=== PATIENT | female | born 1955 | race Caucasian/White ===

== ENCOUNTER → 2016-11-10 | Outpatient (CLI) | payer BC ==
[~2016-11-10] MED LIST: OMNIPAQUE 350 MG/ML, 100ML BOTTLE ONE
== END | disposition home or self-care (01) ==
LOC: CFH 08:18
PROVIDERS: ATTEND Internal Medicine Gastroenterology
DX: K62.9 Disease of anus and rectum, unspecified (principal); I31.3 Pericardial effusion (noninflammatory); R18.8 Other ascites
CPT/HCPCS: 74177; Q9967

== ENCOUNTER → 2016-12-30 | Outpatient (CLI) | payer BC ==
[~2016-12-30] MED LIST changes: +ESOM20CA PO; +LACT1CAP35 PO; +MULTIVITAMIN PO; -OMNIPAQUE 350 MG/ML, 100ML BOTTLE ONE; +ONDA4TAB7 PO; +OXYC-223 PO; +POLY17PO5 PO
== END | disposition home or self-care (01) ==
LOC: WOUND 13:47
PROVIDERS: ATTEND Internal Medicine
DX: T81.89XD Other complications of procedures, not elsewhere classified, subsequent encounter (principal); I10 Essential (primary) hypertension; Z85.43 Personal history of malignant neoplasm of ovary; Z90.710 Acquired absence of both cervix and uterus; Z85.528 Personal history of other malignant neoplasm of kidney; Y83.8 Other surgical procedures as the cause of abnormal reaction of the patient, or of later complication, without mention of misadventure at the time of the procedure
CPT/HCPCS: 99213

== ENCOUNTER → 2017-01-01 | Outpatient (CLI) | payer BC ==
[~2017-01-01] MED LIST changes: +OMNIPAQUE 350 MG/ML, 100ML BOTTLE ONE
== END | disposition home or self-care (01) ==
LOC: CFH 11:35
PROVIDERS: ATTEND Specialist
DX: C56.9 Malignant neoplasm of unspecified ovary (principal); R19.00 Intra-abdominal and pelvic swelling, mass and lump, unspecified site; R59.0 Localized enlarged lymph nodes; D73.89 Other diseases of spleen
CPT/HCPCS: 74177; Q9967

== ENCOUNTER → 2017-01-08 | Outpatient (CLI) | payer BC ==
[~2017-01-08] MED LIST changes: -OMNIPAQUE 350 MG/ML, 100ML BOTTLE ONE
== END | disposition home or self-care (01) ==
LOC: WOUND 11:43
PROVIDERS: ATTEND Internal Medicine
DX: T81.89XD Other complications of procedures, not elsewhere classified, subsequent encounter (principal); I10 Essential (primary) hypertension; Z85.43 Personal history of malignant neoplasm of ovary; Z88.5 Allergy status to narcotic agent; Z85.528 Personal history of other malignant neoplasm of kidney; Z90.710 Acquired absence of both cervix and uterus; Y83.8 Other surgical procedures as the cause of abnormal reaction of the patient, or of later complication, without mention of misadventure at the time of the procedure
CPT/HCPCS: 99213

== ENCOUNTER 2017-01-09 23:28 | Emergency (ER) | payer BC ==
[~2017-01-09] VITALS: Ht 172.7 cm; Wt 54.0 kg
[2017-01-09 23:31] VITALS: BP 159/95
== END 2017-01-10 01:44 | disposition home or self-care (01) ==
LOC: ED 01-10 01:14
DX: K59.00 Constipation, unspecified (principal); I10 Essential (primary) hypertension; Z85.43 Personal history of malignant neoplasm of ovary; Z90.710 Acquired absence of both cervix and uterus; Z90.49 Acquired absence of other specified parts of digestive tract; Z88.5 Allergy status to narcotic agent
CPT/HCPCS: 36415; 74020; 85025; 99285

== ENCOUNTER → 2017-01-19 | Outpatient (CLI) | payer BC ==
[~2017-01-19] MED LIST changes: +ALPR0.25 PO; +MULT-249 PO
== END | disposition home or self-care (01) ==
LOC: WOUND 09:00
PROVIDERS: ATTEND Internal Medicine Cardiovascular Disease
DX: T81.89XD Other complications of procedures, not elsewhere classified, subsequent encounter (principal); I10 Essential (primary) hypertension; Z90.710 Acquired absence of both cervix and uterus; Y83.8 Other surgical procedures as the cause of abnormal reaction of the patient, or of later complication, without mention of misadventure at the time of the procedure
CPT/HCPCS: 99213

== ENCOUNTER → 2017-05-24 | Outpatient (CLI) | payer BC ==
[~2017-05-24] MED LIST changes: +OMNIPAQUE 350 MG/ML, 100ML BOTTLE ONE; -OXYC-223 PO; +OXYC-306 PO
== END | disposition home or self-care (01) ==
LOC: CFH 13:03
PROVIDERS: ATTEND Specialist
DX: R19.00 Intra-abdominal and pelvic swelling, mass and lump, unspecified site (principal); C20 Malignant neoplasm of rectum; C56.9 Malignant neoplasm of unspecified ovary
CPT/HCPCS: 74177; Q9967

== ENCOUNTER → 2017-06-10 | Outpatient (CLI) | payer BC ==
[~2017-06-10] MED LIST changes: -OMNIPAQUE 350 MG/ML, 100ML BOTTLE ONE
== END | disposition home or self-care (01) ==
LOC: RAD 06:46
PROVIDERS: ATTEND Specialist
DX: C20 Malignant neoplasm of rectum (principal); C56.9 Malignant neoplasm of unspecified ovary
CPT/HCPCS: 74270

== ENCOUNTER → 2017-06-15 | Outpatient (CLI) | payer BC ==
[2017-06-15 14:22] LABS: BASOPHILS # (AUTO) 0.01 x10^3/uL (0-0.1); BASOPHILS % (AUTO) 0 % (0-1); EOSINOPHILS # (AUTO) 0.12 x10^3/uL (0-0.4); EOSINOPHILS % (AUTO) 2 % (1-7); LYMPHOCYTES # (AUTO) 1.76 x10^3/uL (1-3.4); LYMPHOCYTES % (AUTO) 29 % (22-44); MD NO; MEAN CORPUSCULAR HEMOGLOBIN 31.2 pg (27.0-34.8); MEAN CORPUSCULAR HGB CONC 33.6 g/dL (32.4-35.8); MEAN CORPUSCULAR VOLUME 92.8 fL (80-100); MEAN PLATELET VOLUME 6.9 fL (7.4-10.4); MONOCYTES # (AUTO) 0.41 x10^3/uL (0.2-0.8); MONOCYTES % (AUTO) 7 % (2-9); NEUTROPHILS # (AUTO) 3.81 x10^3/uL (1.8-6.8); NEUTROPHILS % (AUTO) 62 % (42-75); PLATELET COUNT 222 x10^3/uL (130-400); RED BLOOD COUNT 4.13 x10^6/uL (3.82-5.3); RED CELL DISTRIBUTION WIDTH 13.1 % (9.6-15.2)
[2017-06-15 14:29] LABS: INTERNATIONAL NORMALIZED RATIO 0.96 (0.93-1.1)
[2017-06-15 14:34] LABS: CHLORIDE 106 mmol/L (98-107)
[2017-06-15 14:40] LABS: ALANINE AMINOTRANSFERASE 14 U/L (12-78); ALBUMIN 3.9 g/dL (3.4-5.0); ALKALINE PHOSPHATASE 58 U/L (45-117); ANION GAP 7 mmol/L (5-15); BILIRUBIN,TOTAL 0.5 mg/dL (0.2-1.0); CALCIUM 8.7 mg/dL (8.5-10.1); CREATININE 0.58 mg/dL (0.55-1.02); TOTAL PROTEIN 7.2 g/dL (6.4-8.2)
== END ==
LOC: STAR 13:17
PROVIDERS: ATTEND Specialist
DX: Z01.818 Encounter for other preprocedural examination (principal); C56.9 Malignant neoplasm of unspecified ovary; R94.31 Abnormal electrocardiogram [ECG] [EKG]
CPT/HCPCS: 36415; 80053; 85025; 85610; 85730; 93005

== ENCOUNTER 2017-06-21 05:49 | Inpatient (IN) | payer BC ==
[~2017-06-21] VITALS: Ht 172.7 cm; Wt 68.0 kg
[2017-06-21] MEDS ORDERED: LACTATED RINGERS 1,000 ML IV SCH (06:16)
[2017-06-21 06:40] VITALS: BP 137/80
[2017-06-21] MEDS ORDERED: MIDAZOLAM 1 MG/ML, 2ML ONE (06:59)
[2017-06-21] MEDS ORDERED: FENTANYL PF 250 MCG/5ML ONE (07:00)
[2017-06-21] MEDS ORDERED: ROCURONIUM 10 MG/ML,10ML ONE (07:00)
[2017-06-21] MEDS ORDERED: PROPOFOL 10 MG/ML, 20ML ONE (07:00)
[2017-06-21] MEDS ORDERED: DEXAMETHASONE 4 MG/ML, 1ML ONE (07:06)
[2017-06-21] MEDS ORDERED: CEFOTETAN 2 GM ONE (07:39)
[2017-06-21] MEDS ORDERED: ONDANSETRON 2MG/ML, 2ML ONE (09:05)
[2017-06-21] MEDS ORDERED: DIAZEPAM 5 MG/ML, 2ML IVPush PRN (10:00)
[2017-06-21] MEDS ORDERED: OXYcodone 5 MG/5 ML ORAL.SOL UDC PO PRN (10:00)
[2017-06-21] MEDS ORDERED: LABETALOL 5MG/ML, 20ML IV PRN (10:00)
[2017-06-21] MEDS ORDERED: PROMETHAZINE 25 MG/ML, 1ML IV PRN (10:00)
[2017-06-21] MEDS ORDERED: HYDROmorphone 1 MG/ML, 1ML IV PRN (10:00)
[2017-06-21] MEDS ORDERED: ONDANSETRON 2MG/ML, 2ML IVPush PRN (10:00)
[2017-06-21] MEDS ORDERED: hydrALAzine 20 MG/ML, 1ML IV PRN (10:00)
[2017-06-21] MEDS ORDERED: ACETAMINOPHEN 325 MG TABLET PO PRN (10:00)
[2017-06-21] MEDS ORDERED: MEPERIDINE/PF 25MG/0.5ML IVPush PRN (10:00)
[2017-06-21] MEDS ORDERED: FENTANYL PF 100 MCG/2ML IV PRN (10:00)
[2017-06-21] MEDS ORDERED: HYDROmorphone 2 MG/ML, 1ML ONE (10:10)
[2017-06-21] MEDS ORDERED: GLYCOPYRROLATE 0.4 MG/2 ML, 2ML ONE (10:12)
[2017-06-21] MEDS ORDERED: NEOSTIGMINE 1 MG/ML, 10ML ONE (10:12)
[2017-06-21] MEDS ORDERED: FENTANYL PF 100 MCG/2ML ONE (10:51)
[2017-06-21] MEDS ORDERED: HYDROmorphone PCA 30 MG/30 ML ONE (11:16)
[2017-06-21] MEDS ORDERED: KETOROLAC 30 MG/1 ML ONE (11:33)
[2017-06-21] MEDS ORDERED: KETOROLAC 30 MG/1 ML IVPush SCH (12:00)
[2017-06-21] MEDS ORDERED: HYDROmorphone PCA 30 MG/30 ML IV PRN ×2 (12:00→17:30)
[2017-06-21] MEDS ORDERED: OXYcodone/APAP 5/325MG TABLET PO PRN (16:00)
[2017-06-21] MEDS ORDERED: BISACODYL 10 MG SUPP PR PRN (16:00)
[2017-06-21] MEDS ORDERED: PROMETHAZINE 25 MG/ML, 1ML ONE (18:19)
[2017-06-21] MEDS: D5%-0.45NACL+KCL 20MEQ 1,000 ML IV SCH (18:24)
[2017-06-21] MEDS ORDERED: PROMETHAZINE 25 MG/ML, 1ML IM PRN (18:30)
[2017-06-21 21:01] VITALS: BP 114/55
[2017-06-21] MEDS: SCOPOLAMINE 1MG PATCH TD SCH (22:00)
[2017-06-21] MEDS: ONDANSETRON 2MG/ML, 2ML IV PRN (22:10)
[2017-06-22 00:15] VITALS: BP 110/61
[2017-06-22] MEDS: D5%-0.45NACL+KCL 20MEQ 1,000 ML IV SCH ×3 (02:20→20:30)
[2017-06-22 04:27] VITALS: BP 110/56
[2017-06-22 05:19] LABS: BASOPHILS # (AUTO) 0.01 x10^3/uL (0-0.1); BASOPHILS % (AUTO) 0 % (0-1); EOSINOPHILS % (AUTO) 0 % (1-7); LYMPHOCYTES # (AUTO) 1.07 x10^3/uL (1-3.4); LYMPHOCYTES % (AUTO) 19 % (22-44); MD NO; MEAN CORPUSCULAR HGB CONC 33.8 g/dL (32.4-35.8); MEAN CORPUSCULAR VOLUME 91.7 fL (80-100); MEAN PLATELET VOLUME 6.9 fL (7.4-10.4); MONOCYTES # (AUTO) 0.48 x10^3/uL (0.2-0.8); MONOCYTES % (AUTO) 8 % (2-9); NEUTROPHILS # (AUTO) 4.21 x10^3/uL (1.8-6.8); NEUTROPHILS % (AUTO) 73 % (42-75); PLATELET COUNT 204 x10^3/uL (130-400); RED BLOOD COUNT 3.81 x10^6/uL (3.82-5.3)
[2017-06-22 05:22] LABS: ALBUMIN 2.6 g/dL (3.4-5.0); ANION GAP 4 mmol/L (5-15); CALCIUM 7.8 mg/dL (8.5-10.1); CHLORIDE 106 mmol/L (98-107)
[2017-06-22 05:26] LABS: ALANINE AMINOTRANSFERASE 17 U/L (12-78); ALKALINE PHOSPHATASE 41 U/L (45-117); BILIRUBIN,TOTAL 0.5 mg/dL (0.2-1.0); CREATININE 0.74 mg/dL (0.55-1.02); TOTAL PROTEIN 5.3 g/dL (6.4-8.2)
[2017-06-22 09:15] VITALS: BP 112/62
[2017-06-22 15:34] VITALS: BP 121/67
[2017-06-22 19:20] VITALS: BP 107/69
[2017-06-22] MEDS: KETOROLAC 30 MG/1 ML IV PRN (20:21)
[2017-06-23] MEDS: KETOROLAC 30 MG/1 ML IV PRN ×4 (02:34→20:11)
[2017-06-23 03:08] VITALS: BP 102/52
[2017-06-23] MEDS: D5%-0.45NACL+KCL 20MEQ 1,000 ML IV SCH ×2 (04:43→18:16)
[2017-06-23 05:31] LABS: ANION GAP 5 mmol/L (5-15); BASOPHILS # (AUTO) 0.02 x10^3/uL (0-0.1); BASOPHILS % (AUTO) 0 % (0-1); CALCIUM 8.2 mg/dL (8.5-10.1); CHLORIDE 104 mmol/L (98-107); EOSINOPHILS # (AUTO) 0.04 x10^3/uL (0-0.4); EOSINOPHILS % (AUTO) 1 % (1-7); LYMPHOCYTES % (AUTO) 9 % (22-44); MD NO; MEAN CORPUSCULAR HGB CONC 33.8 g/dL (32.4-35.8); MEAN CORPUSCULAR VOLUME 91.7 fL (80-100); MEAN PLATELET VOLUME 7.1 fL (7.4-10.4); MONOCYTES # (AUTO) 0.51 x10^3/uL (0.2-0.8); MONOCYTES % (AUTO) 8 % (2-9); NEUTROPHILS # (AUTO) 5.38 x10^3/uL (1.8-6.8); NEUTROPHILS % (AUTO) 82 % (42-75); PLATELET COUNT 156 x10^3/uL (130-400); RED CELL DISTRIBUTION WIDTH 12.9 % (9.6-15.2)
[2017-06-23 05:32] LABS: CREATININE 0.46 mg/dL (0.55-1.02)
[2017-06-23 07:10] VITALS: BP 112/56
[2017-06-23 15:13] VITALS: BP 105/62
[2017-06-23 20:01] VITALS: BP 118/62
[2017-06-24] MEDS: D5%-0.45NACL+KCL 20MEQ 1,000 ML IV SCH ×3 (01:07→17:05)
[2017-06-24 02:03] VITALS: BP 107/60
[2017-06-24] MEDS: KETOROLAC 30 MG/1 ML IV PRN ×4 (02:13→20:11)
[2017-06-24 08:10] VITALS: BP 106/63
[2017-06-24 15:52] VITALS: BP 117/63
[2017-06-24 19:15] VITALS: BP 131/78
[2017-06-24] MEDS: SCOPOLAMINE 1MG PATCH TD SCH (22:00)
[2017-06-25 01:45] VITALS: BP 118/68
[2017-06-25] MEDS: D5%-0.45NACL+KCL 20MEQ 1,000 ML IV SCH ×3 (02:22→22:26)
[2017-06-25] MEDS: KETOROLAC 30 MG/1 ML IV PRN ×4 (02:22→22:11)
[2017-06-25 08:02] VITALS: BP 123/72
[2017-06-25] MEDS ORDERED: HYDROmorphone PCA 30 MG/30 ML IV PRN (09:33)
[2017-06-25] MEDS: CALCIUM CARBONATE 500 MG TAB.CHEW PO PRN ×3 (10:13→22:11)
[2017-06-25] MEDS: OXYcodone/APAP 5/325MG TABLET PO PRN ×4 (10:13→23:45)
[2017-06-25 12:23] LABS: BASOPHILS # (AUTO) 0.01 x10^3/uL (0-0.1); BASOPHILS % (AUTO) 0 % (0-1); EOSINOPHILS # (AUTO) 0.09 x10^3/uL (0-0.4); EOSINOPHILS % (AUTO) 2 % (1-7); LYMPHOCYTES # (AUTO) 0.87 x10^3/uL (1-3.4); LYMPHOCYTES % (AUTO) 18 % (22-44); MD SCAN; MEAN CORPUSCULAR HGB CONC 34.3 g/dL (32.4-35.8); MEAN CORPUSCULAR VOLUME 90.5 fL (80-100); MEAN PLATELET VOLUME 7.3 fL (7.4-10.4); MONOCYTES # (AUTO) 0.38 x10^3/uL (0.2-0.8); MONOCYTES % (AUTO) 8 % (2-9); NEUTROPHILS # (AUTO) 3.52 x10^3/uL (1.8-6.8); NEUTROPHILS % (AUTO) 72 % (42-75); PLATELET COUNT 164 x10^3/uL (130-400); RED BLOOD COUNT 3.19 x10^6/uL (3.82-5.3)
[2017-06-25 12:27] LABS: ANION GAP 6 mmol/L (5-15); CALCIUM 8.3 mg/dL (8.5-10.1); CHLORIDE 105 mmol/L (98-107); CREATININE 0.52 mg/dL (0.55-1.02)
[2017-06-25 15:19] VITALS: BP 113/62
[2017-06-25 22:12] VITALS: BP 142/85
[2017-06-26 02:15] VITALS: BP 110/70
[2017-06-26] MEDS: KETOROLAC 30 MG/1 ML IV PRN ×2 (04:17→10:17)
[2017-06-26] MEDS: OXYcodone/APAP 5/325MG TABLET PO PRN ×2 (06:05→13:09)
[2017-06-26] MEDS: CALCIUM CARBONATE 500 MG TAB.CHEW PO PRN ×2 (10:23→13:13)
[2017-06-26 12:26] VITALS: BP 145/81
[2017-06-26] MEDS: D5%-0.45NACL+KCL 20MEQ 1,000 ML IV SCH ×2 (14:53→20:07)
[2017-06-26] MEDS: OXYcodone/APAP 7.5/325MG TABLET PO PRN ×2 (19:22→23:36)
[2017-06-26] MEDS: ONDANSETRON 2MG/ML, 2ML IV PRN (19:26)
[2017-06-26 19:42] VITALS: BP 147/78
[2017-06-26] MEDS: FAMOTIDINE 20 MG TABLET PO SCH (20:07)
[2017-06-27 03:35] VITALS: BP 152/91
[2017-06-27] MEDS: IBUPROFEN 200 MG TABLET PO PRN ×2 (03:39→10:30)
[2017-06-27] MEDS: OXYcodone/APAP 7.5/325MG TABLET PO PRN ×3 (03:39→12:20)
[2017-06-27] MEDS: D5%-0.45NACL+KCL 20MEQ 1,000 ML IV SCH (07:42)
[2017-06-27] MEDS: FAMOTIDINE 20 MG TABLET PO SCH (07:52)
[2017-06-27 08:05] VITALS: BP 157/98
[2017-06-27] MEDS ORDERED: OXYC1TAB7 PO (13:25)
[2017-06-27 14:28] VITALS: BP 156/92
== END 2017-06-27 15:03 | disposition home or self-care (01) | DRG 330 ==
LOC: ORIP 05:49 → 4NOR 14:47
PROVIDERS: ADMIT Specialist; ATTEND Specialist
PROC: 0DBV0ZX Excision of Mesentery, Open Approach, Diagnostic (ICD-10-PCS; 2017-06-21)
PROC: 0DBL0ZX Excision of Transverse Colon, Open Approach, Diagnostic (ICD-10-PCS; 2017-06-21)
PROC: 07BD0ZX Excision of Aortic Lymphatic, Open Approach, Diagnostic (ICD-10-PCS; 2017-06-21)
PROC: 0DB Gastrointestinal System, Excision (ICD-10-PCS; 2017-06-21)
PROC: 0BBT0ZX Excision of Diaphragm, Open Approach, Diagnostic (ICD-10-PCS; 2017-06-21)
PROC: 0TBB0ZX Excision of Bladder, Open Approach, Diagnostic (ICD-10-PCS; 2017-06-21)
PROC: 0WHG03Z Insertion of Infusion Device into Peritoneal Cavity, Open Approach (ICD-10-PCS; 2017-06-21)
PROC: 0DBW0ZX Excision of Peritoneum, Open Approach, Diagnostic (ICD-10-PCS; 2017-06-21)
PROC: 06B90ZZ Excision of Right Renal Vein, Open Approach (ICD-10-PCS; 2017-06-21)
PROC: 06B Lower Veins, Excision (ICD-10-PCS; 2017-06-21)
PROC: 3E0M05Z Introduction of Adhesion Barrier into Peritoneal Cavity, Open Approach (ICD-10-PCS; 2017-06-21)
PROC: 0DBE0ZZ Excision of Large Intestine, Open Approach (ICD-10-PCS; principal; 2017-06-21 07:30)
PROC: 0DN80ZZ Release Small Intestine, Open Approach (ICD-10-PCS; 2017-06-21 07:30)
DX: Z43.3 Encounter for attention to colostomy (principal); C56.9 Malignant neoplasm of unspecified ovary; D64.9 Anemia, unspecified; K66.0 Peritoneal adhesions (postprocedural) (postinfection); R59.9 Enlarged lymph nodes, unspecified; Z80.3 Family history of malignant neoplasm of breast; Z80.41 Family history of malignant neoplasm of ovary; Z85.43 Personal history of malignant neoplasm of ovary; Z92.21 Personal history of antineoplastic chemotherapy
CPT/HCPCS: 36415; 80048; 80053; 82570; 85025; 86850; 86900; 86923; 88112; 88305; 88341; 88342; C1729; J0171; J1100; J1170; J1644; J1885; J2250; J2405; J2550; J2704; J2710; J3010; J3490; C1751; C1765; G0461; J3480; J7120; S0074

== ENCOUNTER → 2017-11-12 | Outpatient (CLI) | payer BC ==
[~2017-11-12] MED LIST changes: +OMNIPAQUE 350 MG/ML, 100ML BOTTLE ONE; +OXYC1TAB7 PO
== END | disposition home or self-care (01) ==
LOC: RAD 09:27
PROVIDERS: ATTEND Specialist
DX: C20 Malignant neoplasm of rectum (principal); C56.9 Malignant neoplasm of unspecified ovary; I31.3 Pericardial effusion (noninflammatory)
CPT/HCPCS: 74177; Q9967

== ENCOUNTER → 2018-07-28 | Outpatient (CLI) | payer MEDICARE | END | disposition home or self-care (01) | LOC: CFH 08:57 | PROVIDERS: ATTEND Specialist | DX: K76.0 Fatty (change of) liver, not elsewhere classified (principal); M16.0 Bilateral primary osteoarthritis of hip; I31.3 Pericardial effusion (noninflammatory); C56.9 Malignant neoplasm of unspecified ovary | CPT/HCPCS: 74177; Q9967 ==